=== PATIENT | male | born 1950 | race Caucasian/White ===

== ENCOUNTER 2019-01-16 05:57 | Emergency (ER) | payer BC, OTHER ==
[~2019-01-16] VITALS: Ht 175.3 cm; Wt 78.9 kg
[2019-01-16 06:14] VITALS: Ht 175.3 cm; Wt 78.9 kg
[2019-01-16 07:35] LABS: PLATELET COUNT 254 x10^3mcL (130-400); RED CELL DISTRIBUTION WIDTH 14.3 % (11.5-14.5)
[2019-01-16 08:21] LABS: BILIRUBIN TOTAL 0.82 mg/dL (0.20-1.00); CALCIUM 8.8 mg/dL (8.5-10.1); CARBON DIOXIDE 26.3 mmol/L (21-32); CREATININE SERUM 1.3 mg/dL (0.7-1.3); POTASSIUM SERUM 4.3 mmol/L (3.5-5.1); TOTAL PROTEIN, SERUM 6.5 g/dL (6.4-8.2)
[2019-01-16 08:23] LABS: ALBUMIN 3.2 g/dL (3.4-5.0)
[2019-01-16 08:58] LABS: BAND NEUTROPHIL 3 % (0-10); BASOPHIL 0 % (0-2); MONOCYTE 5 % (0-7); SEGMENTED NEUTROPHILS 81 % (37-75)
[2019-01-16 08:59] LABS: rbc morphology (normal/abnorm) NORMAL (NORMAL)
[2019-01-16 09:00] LABS: PLATELET MORPHOLOGY PLATELETS NORMAL
[2019-01-16 09:09] VITALS: BP 123/83
== END 2019-01-16 09:09 | disposition home or self-care (01) ==
LOC: ED 05:57
PROVIDERS: Emergency Medicine
DX: N30.91 Cystitis, unspecified with hematuria (principal); E78.5 Hyperlipidemia, unspecified
CPT/HCPCS: 36415; Q0092

== ENCOUNTER 2019-06-21 04:09 | Emergency (ER) | payer BC, OTHER ==
[2019-06-21 04:15] VITALS: Ht 175.3 cm
[2019-06-21 06:22] LABS: BASOPHIL % 0.4 % (0-2); PLATELET COUNT 241 x10^3mcL (130-400); RED CELL DISTRIBUTION WIDTH 13.8 % (11.5-14.5)
[2019-06-21 06:30] LABS: CALCIUM 7.7 mg/dL (8.5-10.1); CARBON DIOXIDE 27.1 mmol/L (21-32); CHLORIDE SERUM 110 mmol/L (98-107); CREATININE SERUM 1.2 mg/dL (0.7-1.3); GLUCOSE SERUM 93 mg/dL (74-106); POTASSIUM SERUM 4.3 mmol/L (3.5-5.1); SODIUM SERUM 141 mmol/L (136-145)
[2019-06-21 06:35] LABS: ALKALINE PHOSPHATASE 84 U/L (46-116); ALT/SGPT 26 U/L (16-63); AST/SGOT 15 U/L (15-37); BILIRUBIN TOTAL 0.7 mg/dL (0.20-1.00)
[2019-06-21 06:38] LABS: ALBUMIN 2.8 g/dL (3.4-5.0); TOTAL PROTEIN, SERUM 5.9 g/dL (6.4-8.2)
[2019-06-21 06:39] LABS: UA SPECIFIC GRAVITY 1.015 (1.005-1.035); microscopic required? YES; urine erythrocyte 3+ (NEGATIVE)
[2019-06-21 08:03] VITALS: BP 112/79
== END 2019-06-21 08:03 | disposition home or self-care (01) ==
LOC: ED 04:09
PROVIDERS: Emergency Medicine
DX: N39.0 Urinary tract infection, site not specified (principal); E78.5 Hyperlipidemia, unspecified; Z98.890 Other specified postprocedural states
CPT/HCPCS: J0696; J7030; J7060